=== PATIENT | male | born 1960 | race Caucasian/White ===

== ENCOUNTER 2017-03-02 06:55 | Day surgery (SDC) | payer OTHER ==
[~2017-03-02] VITALS: Ht 167.6 cm; Wt 76.8 kg
[2017-03-02 07:23] VITALS: Ht 167.6 cm; Wt 76.8 kg
[2017-03-02 07:59] VITALS: BP 124/89; PULSE 52; RESP 20
[2017-03-02] MEDS ORDERED: LIDOCAINE 4% SOLUTION 50 ML BTL ONE (08:09)
[2017-03-02] MEDS ORDERED: MIDAZOLAM 1 MG/ML 2 ML INJ ONE ×2 (08:46)
[2017-03-02] MEDS ORDERED: FENTAnyl 50 MCG/ML VIAL ONE (08:46)
[2017-03-02 09:10] VITALS: BP 147/90; PULSE 62; RESP 18
--- NOTE | 2017-03-02 10:30 | GILP ---
DATE OF PROCEDURE: 03/02/2017 NAME OF PROCEDURE: Esophagogastroduodenoscopy and esophageal variceal banding. PREOPERATIVE DIAGNOSES: Patient presenting with history of occult gastrointestinal bleeding, rule o ut peptic ulcer disease, gastritis, varices. POSTOPERATIVE DIAGNOSES: 1. Grade III to grade IV esophageal varices banding was performed. 2. Diffuse gastritis, questionable gastric varices in the fundus noted. Biopsy was done to rule ou t Helicobacter pylori infection. DESCRIPTION OF PROCEDURE: After the informed written consent was obtained, the patient was asked to lie on the left lateral side, 3 mg Versed and 50 mcg of fentanyl was given as intravenous anesthesi a. When the patient became somnolent, the Olympus video upper endoscope was introduced into the orophar ynx, then into the esophagus. Esophagus showed evidence of grade III to grade IV esophageal varices . The scope at this time was advanced into the stomach. Stomach showed evidence of a diffuse eryth nel and friability, gastric cardia showed evidence of possible gastric varices. Only 1 biopsy was d one to rule out Helicobacter pylori infection. Duodenum showed normal mucosal pattern. Endoscope a t this time was withdrawn. The [employer] esophageal variceal banding device was attached to the scope and scope was introduced into the esophagus. Three varices were selected and bandings wer e deployed over these varices. At this time, no more varices noted for more banding. Scope at this time was withdrawn and no additional abnormalities detected after taking the pictures and the proce dure was terminated. PLAN: Recommend propranolol 20 mg p.o. b.i.d. and recommend a TIPS procedure to prevent esophageal variceal bleeding. Dictated By: PERRY NEAL/TRE Conf#: [id number] DID#: [id number] CC: PERRY LAMA MD; DEE TEJADA MD;*End*
--- NOTE | 2017-03-02 10:31 | GILP ---
DATE OF PROCEDURE: 03/02/2017 PROCEDURE: Colonoscopy. SURGEON: Haider Macias MD PREOPERATIVE DIAGNOSIS: A patient presenting with history of occult gastrointestinal bleeding, rule out colorectal neoplasm. POSTOPERATIVE DIAGNOSES: 1. Three polyps as noted below. A 3 mm polyp in the hepatic flexure. Two more polyps noted in the mid ascending colon. Two polyps are 3 mm each in diameter and these were removed with cold biopsy forceps. 2. Minimal internal and external hemorrhoids. DESCRIPTION OF PROCEDURE: After the informed written consent was obtained, the patient was asked to lie on the left lateral side. The patient was given 4 mg Versed and 75 mcg of fentanyl as intraven ous anesthesia. When the patient became somnolent, the Olympus video colonoscope was introduced into the rectum and scope was advanced all the way to the cecum. The entire colon was examined. A 3 mm flat polyp was noted in the hepatic flexure. This was removed with the help of a cold biopsy forceps. Two more po lyps measuring 3 mm in diameter noted in the mid ascending colon. These 2 polyps also removed with the help of a cold biopsy forceps. Cecum appeared normal. On the way out, no additional abnormalit ies detected. Minimal internal and minimal external hemorrhoids were noted and the procedure was te rminated. PLAN: Recommend wait for the pathology report. Dictated By: HAIDER NEAL/TRE Conf#: [id number] DID#: [id number] CC: HAIDER MACIAS MD; DEE TEJADA MD;*EndCC*
== END 2017-03-02 11:13 | disposition home or self-care (01) ==
LOC: GIL 06:55
PROVIDERS: ATTEND Internal Medicine Gastroenterology
DX: K29.30 Chronic superficial gastritis without bleeding (principal); K44.9 Diaphragmatic hernia without obstruction or gangrene; D12.2 Benign neoplasm of ascending colon; K63.5 Polyp of colon; K64.4 Residual hemorrhoidal skin tags; K64.8 Other hemorrhoids; I85.00 Esophageal varices without bleeding
CPT/HCPCS: 43239; 45380; 88305; 88312; J2250; J3010; Z7610

== ENCOUNTER 2018-02-21 11:16 | Day surgery (SDC) | END 2018-02-21 15:50 | disposition home or self-care (01) ==